=== PATIENT | male | born 1980 | race Caucasian/White ===

== ENCOUNTER 2022-04-22 08:02 | Emergency (ER) | payer OTHER, SELFPAY ==
--- NOTE | 2022-04-22 08:05 | ED.ABDPAIN ---
HPI - Abdominal Pain General Chief Complaint: Abdominal Pain Stated Complaint: Abdominal Pain Time Seen by Provider: 04/22/22 08:05 Source: patient and RN notes reviewed History of Present Illness HPI narrative: patient is a 42-year-old male who presents to urgent care with complaints of midline abdominal pain. Patient states that he woke up with it today. States that he believes it is a hernia and only hurts with straining. Patient denies of any nausea, vomiting, fevers. Patient did eat breakfast this morning without any issues. Patient has not taken anything [id number] for the pain. Patient states he does not really have any pain at rest. No other acute complaints. No acute distress noted. Patient aware of the plan of care. Some parts of this dictation were generated by voice recognition software and may contain typographical and/or grammatical inaccuracies. Related Data Home Medications Medication Instructions Recorded Confirmed No Home Medications 04/22/22 04/22/22 Allergies Allergy/AdvReac Type Severity Reaction Status Date / Time No Known Allergies Allergy Verified 04/22/22 08:19 Review of Systems Review of Systems: CONSTITUTIONAL: Denies fever, chills, or sweats. EYES: Denies visual changes, redness, or discharge. ENT: Denies rhinorrhea, congestion, sore throat, or otalgia. CARDIOVASCULAR: Denies chest pain, palpitations, or edema. RESPIRATORY: Denies cough or dyspnea. GASTROINTESTINAL: Reports of midline abdominal pain with straining GENITOURINARY: Denies dysuria or hematuria. SKIN: Denies rash or itching. MUSCULOSKELETAL: Denies back pain, joint pain, or myalgia. NEUROLOGIC: Denies headache, numbness, or weakness. All other systems reviewed are negative, except as documented in HPI. PMFSH Comments At the time of my signature, I reviewed and agree with the nursing past medical, surgical, social, and family history. There is no relevant family history pertinent to the patient complaint. Exam Narrative: GENERAL: This is a well-nourished, well-developed patient, in no apparent distress. HEAD: normocephalic, atraumatic. EYES: PERRL. Sclera clear/white. Vision is grossly intact. EARS: External ears normal NOSE: External nose normal with no obvious nasal discharge, nares without redness, no rhinorrhea. THROAT: Mucous membranes moist NECK: Neck supple CARDIOVASCULAR: Regular rate and rhythm without murmurs, gallops, or rubs. RESPIRATORY: Clear to auscultation. Breath sounds equal bilaterally. No wheezes, rales, or rhonchi. GASTROINTESTINAL: Abdomen soft, non-tender, nondistended. Bowel sounds are active. no palpable masses. Pain exacerbated with straining/movement SKIN: warm, intact with no suspicious lesions or rash, good texture and turgor. NEURO: awake, alert, and oriented to person, place and time. There were no obvious focal neurologic abnormalities. EXTREMITIES: No clubbing, cyanosis, or edema. Course Course Level of Care: Express Care Visit Vital Signs Vital signs: Vital Signs Temperature 97.3 F L 04/22/22 08:11 Pulse Rate 87 04/22/22 08:11 Respiratory Rate 16 04/22/22 08:11 Blood Pressure 132/83 04/22/22 08:11 Pulse Oximetry 98 04/22/22 08:11 Oxygen Delivery Room Air 04/22/22 08:11 Temperature 97.3 F L 04/22/22 08:11 Pulse Rate 87 04/22/22 08:11 Respiratory Rate 16 04/22/22 08:11 Blood Pressure 132/83 04/22/22 08:11 Pulse Oximetry 98 04/22/22 08:11 Oxygen Delivery Room Air 04/22/22 08:11 reviewed MDM - Abdominal Pain MDM Narrative Medical decision making narrative: discussed with the patient at our facility is unable to do imaging to rule out abdominal mass/ hernia. If pain exacerbates or you develop any nausea, vomiting or fever associated with the pain -go to the emergency room. Would advise obtaining a primary care doctor and following up for further evaluation. Patient did mention that he may go to [facility]
[2022-04-22 08:11] VITALS: BP 132/83; PULSE 87; RESP 16; TEMP 36.3; O2SAT 98
== END 2022-04-22 08:28 | disposition home or self-care (01) ==
PROVIDERS: Emergency Provider Nurse Practitioner Family
DX: R10.9 Unspecified abdominal pain (principal)
CPT/HCPCS: 99211; G0463